=== PATIENT | male | born 1950 | race Caucasian/White ===

== ENCOUNTER 2016-09-02 00:48 | Emergency (ER) | payer OTHER ==
[2016-09-02] MEDS ORDERED: ACETAMINOPHEN 325 MG TABLET PO ONE ×2 (01:26)
[2016-09-02] MEDS ORDERED: NORMAL SALINE 100 ML IV ONE (01:26)
[2016-09-02] MEDS ORDERED: PIPERACILLIN /TAZO 3.375 GM/10 ML VIAL IV ONE (01:26)
[2016-09-02] MEDS ORDERED: NORMAL SALINE 2,000 ML IV ONE (01:26)
--- NOTE | 2016-09-02 01:31 | RADIOLOGY REPORT ---
AP UPRIGHT PORTABLE CHEST RADIOGRAPH CLINICAL INFORMATION: Possible cellulitis. COMPARISON: None. FINDINGS: Lungs are well inflated. Faint bibasilar opacities may reflect atelectasis or consolidation . No pneumothorax. No displaced fractures. Costophrenic angles are clear. Cardiomediastinal silhouett e is normal in size. IMPRESSION: Faint bibasilar opacities may reflect atelectasis or consolidation. Final Electronic Signature: This report was electronically signed by Cortez Mack MD on 7 1:26 AM. judith /
[2016-09-02 01:43] LABS: ALBUMIN 3.8 g/dL (3.5-5.0); ALKALINE PHOSPHATASE 99 U/L (38-126); ALT 42 U/L (21-72); AST 47 U/L (17-59); BILIRUBIN, DIRECT 0.6 mg/dL (0.0-0.4); BILIRUBIN, TOTAL 1.2 mg/dL (0.2-1.3); BLOOD UREA NITROGEN 35 mg/dL (9-20); CALCIUM 9.7 mg/dL (8.4-10.2); CHLORIDE 103 mmol/L (98-107); EST GLOMERULAR FILTRATION RATE 38 mL/min; LIPASE 13 U/L (23-300); POTASSIUM 3.7 mmol/L (3.5-5.1); SODIUM 137 mmol/L (137-145); TOTAL PROTEIN 7.6 g/dL (6.3-8.2)
[2016-09-02 01:47] LABS: HEMATOCRIT 47.2 % (42.0-54.0); HEMOGLOBIN 16.1 g/dL (14.0-18.0); MEAN CORPUS. HGB CONCENTRATION 34.1 g/dL (32.0-36.0); MEAN CORPUSCULAR HEMOGLOBIN 34.6 pg (29.0-35.0); RED BLOOD COUNT 4.66 X 10^6uL (4.20-6.10); RED CELL DISTRIBUTION WIDTH 12.3 % (11.5-14.5); WHITE BLOOD COUNT 19.1 X 10^3uL (3.9-10.7)
[2016-09-02 01:48] LABS: BAND% (Manual) 13 % (0.0-1.0); BASOPHIL % (Manual) 0 % (0.0-2.0); EOSINOPHIL % (Manual) 0 % (0.0-6.0); LYMPHOCYTE % (Manual) 1 % (20.0-40.0); MEAN PLATELET VOLUME 9.2 fL (7.4-10.4); MONOCYTE % (Manual) 6 % (2.0-10.0); NEUTROPHIL % (Manual) 80 % (54.0-75.0); PLATELET COUNT 171 X 10^3uL (130-440); PLATELET ESTIMATE ADEQUATE
[2016-09-02] MEDS ORDERED: VANCOMYCIN HCL 1,000 MG/20 ML VIAL ONE (01:51)
[2016-09-02] MEDS ORDERED: NORMAL SALINE 250 ML IV ONE (01:52)
[2016-09-02 01:54] LABS: C-REACTIVE PROTEIN > 90.0 mg/L (<10.0); GLUCOSE 215 mg/dL (70-100)
[2016-09-02 01:55] LABS: TROPONIN I 0.076 ng/mL (0.00-0.034)
--- NOTE | 2016-09-02 03:02 | ER PHYSICIAN DOCUMENTATION ---
Physician Documentation [facility] Name:Efren Martinez Age:65 yrs Sex:Male :1950 Arrival Date:09/02/2016 Time:00:48 BedTrauma-A Private MD: Marquis Conway Disposition: 09/02/16 02:23 Transfer ordered to [facility]. Diagnosis are Sepsis, Cellulitis of Leg - : Left, Acute, Dehydration, Chronic Renal Failure/Insufficiency, Diabetes with Hyperglycemia. - Reason for transfer: Higher level of care. - Accepting physician is [facility] Hospitalist Meli Rey MD. - Condition is Serious. - Problem is new. - Symptoms have improved. COBRA Form completed? Transfer - Mode of Transportation Ambulance HPI: 09/02 01:19 This 65 yrs old Male presents to ER with complaints of Possible Cellulitis, cd Dehydration and Sepsis. 01:19 The patient presents with cellulitis of the lateral aspect of left calf, medial aspect cd of left calf and left xiao, the patient presents with an erythematous area of the left leg, the patient presents with a swollen area of the left leg. Description: The affected area is large, approximately 35 cm(s), and is circumferential. There is a patch on his left knee and in his left groin., erythematous, swollen, tense, warm. Onset: The symptom(s)/episode began/occurred acutely, 2 day(s) ago. Possible cause(s): unknown. Severity of symptoms: At their worst the symptoms were severe, just prior to arrival, in the emergency department the symptoms have improved, moderately. The patient's has noticed an increasing red, warm, swollen left leg over the past two days. He has felt very weak, feverish with occasional chills but no rigors. This evening he was walking along the bed using it as support, when he went to his knees and his upper body was on the bed. Three family members could not get him into the bed. When paramedics arrived he was very diaphoretic, weak, awake, oriented with a BP of 137, HR 116-120/minute and O2 Sat of 94%. He arrived with similar vital signs. He denies chest pain, cough, SOB, Abdominal pain, or extremity pain. He has no hx of DVT, left leg cellulitis in the past or Diabetic Neuropathy. He is not immunocompromised other than NIDDM. He has an Aortic Stent for a AAA.. 01:19 Associated signs and symptoms: Pertinent positives: erythema, fever, swelling. cd 02:36 The patient has experienced a previous episode, after his Aortic Stent...the port site cd got infected and spread rapidly.. Historical: - Allergies: Nickel; - Home Meds: 1. glipizide 10 mg oral tab 1 tab once daily for Type 2 Diabetes Mellitus 2. metoprolol tartrate 50 mg oral tab 2 times per day 3. furosemide 20 mg oral tab once daily 4. Chantix 1 mg oral tab 1 tab 2 times per day 5. doxazosin 2 mg oral tab Qhs 6. atorvastatin 80 mg oral tab at bedtime 7. metformin 1,000 mg oral tab QHS 8. amlodipine 10 mg oral tab QHS 9. Fish Oil oral 10. losartan 100 mg oral tab QHS - Tetanus: < 10 years. - Ebola Screening: : Patient negative for fever greater than or equal to 101.5 degrees Fahrenheit, and additional compatible Ebola Virus Disease symptoms. Patient denies exposure to infectious person. Patient denies travel to an Ebola-affected area in the 21 days before illness onset. No symptoms or risks identified at this time. . - Immunization history: Flu Vaccine < 1 year. - Social history: Smoking status: Patient states former smoker of tobacco. ROS: 01:41 Constitutional: Positive for chills, fever, malaise, poor PO intake, and generalized cd weakness. 01:41 Cardiovascular: Negative for chest pain, orthopnea, palpitations. 01:41 Respiratory: Negative for cough, shortness of breath, sputum production, wheezing. 01:41 Abdomen/GI: Positive for anorexia, Negative for abdominal pain, nausea, vomiting, diarrhea, abdominal distension. 01:41 : Negative for urinary symptoms, pelvic pain, flank pain, burning with urination, foul smelling urine. 01:41 MS/extremity: Positive for erythema, rash, swelling, warmth, of the left leg. 01:41 Skin: Positive for cellulitis, discoloration, erythema, swelling, of the left leg, warmth, Negative for abscesses, ecchymosis. 01:41 Neuro: Negative for altered mental status, headache, loss of consciousness, syncope, acute changes. 01:41 All other systems are negative. Exam: 01:43 Head/Face: Normocephalic, atraumatic. cd Eyes: Pupils equal round and reactive to light, extra-ocular motions intact. Lids and lashes normal. Conjunctiva and sclera are non-icteric and not injected. Cornea within normal limits. Periorbital areas with no swelling, redness, or edema. ENT: Nares patent. No nasal discharge, no septal abnormalities noted. Tympanic membranes are normal and external auditory canals are clear. Oropharynx with no redness, swelling, or masses, exudates, or evidence of obstruction, uvula midline. Mucous membranes very dry Chest/axilla: Normal chest wall appearance and motion. Nontender with no deformity. No lesions are appreciated. Cardiovascular: Regular rate and rhythm with a normal S1 and S2. No gallops, murmurs, or rubs. Normal PMI, no JVD. No pulse deficits. Respiratory: Lungs have equal breath sounds bilaterally, clear to auscultation and percussion. No rales, rhonchi or wheezes noted. No increased work of breathing, no retractions or nasal flaring. Abdomen/GI: Soft, non-tender, with normal bowel sounds. No distension or tympany. No guarding or rebound. No evidence of tenderness throughout. Back: No spinal tenderness. No costovertebral tenderness. Full range of motion. 01:43 Neuro: Awake and alert, GCS 15, oriented to person, place, time, and situation. cd Cranial nerves II-XII grossly intact. Motor strength 5/5 in all extremities. Sensory grossly intact. Cerebellar exam normal. Normal gait. 01:43 Constitutional: The patient appears alert, awake, non-diaphoretic, well developed, well nourished, obese. 01:43 Musculoskeletal/extremity: Extremities: grossly normal except: noted in the left leg: erythema, swelling, warmth from cellulitsi. 01:43 Skin: Appearance: Color: flushed, cellulitis, that is severe, confluent, on the lateral aspect of left calf, left calf, medial aspect of left calf, left upper thigh, left knee and left xiao. Vital Signs: 01:27 BP 155 / 73; Pulse 118; Resp 19; Temp 98(O); Pulse Ox 93% ; Weight 99.79 kg; Height 5 bw2 ft. 11 in. (180.34 cm); Pain 0/10; 01:40 BP 177 / 81 (auto/); Pulse 104; Resp 18; bw2 02:37 BP 177 / 98; Pulse 99; Resp 18; Pulse Ox 96% on 2 lpm NC; Pain 0/10; bw2 01:27 Body Mass Index 30.68 (99.79 kg, 180.34 cm) bw2 [place] Coma Score: 01:43 Eye Response: spontaneous(4). Verbal Response: oriented(5). Motor Response: obeys cd commands(6). Total: 15. MDM: 00:55 Patient medically screened. cd 01:05 Data interpreted: gambling monitor: rate is 109 beats/min, rhythm is normal sinus cd rhythm, regular, with no ectopy, Interpretation: tachycardia, Pulse oximetry: on room air is 92 %. Interpretation: normal. 01:40 Physician consultation: Malcolm Ramirez MD was called at 01:30, was contacted at 01:35, cd regarding admission, to telemetry, consult, patient's condition, need to come to ED to see patient, need to evaluate the patient as soon as possible, and will see patient in ED, shortly. 01:53 Differential diagnosis: cellulitis, of LLE, Sepsis, Dehydration, DVT. cd 01:58 Counseling: I had a detailed discussion with the patient and/or guardian regarding: the cd historical points, exam findings, and any diagnostic results supporting the discharge/admit diagnosis, lab results, radiology results, the need for further work-up and treatment in the hospital, risk of leaving the Emergency Department. 02:00 Data reviewed: vital signs, nurses notes, EMS record, old medical records, lab test cd result(s), EKG, radiologic studies, plain films, and as a result, I will continue to observe the patient, initiate a consult, from a Dr. Malcolm Ramirez, [facility] Call Physician, administer antibiotics vancomycin, and Zosyn, administer IV fluids, NS bolus, NS maintenence. 02:23 Physician consultation: after a discussion of the case, a recommendation for transfer cd for higher level of care is made. 02:34 Other consultation: I consulted Dr. Meli Wiseman, [facility] Hospitalist; Called at 0215 cd AM; Called back at 0220 AM.Gave full report and she accepted the patient to the [facility] ICU. . 02:35 Response to treatment: the patient's symptoms have markedly improved after treatment, cd and as a result, I will transfer the patient to [facility].. 09/02 01:42 Order name: LACTATE; Complete Time: 01:51 EDFL 09/02 01:51 Interpretation: Abnormal: LACTATE 3.3; Elevated. 09/02 01:53 Order name: CBC W/ MANUAL DIFFERENTIAL; Complete Time: 02:00 EDFL 09/02 01:59 Interpretation: WHITE BLOOD COUNT 19.1; NEUTROPHIL % (Manual) 80; BAND% (Manual) 13; cd Elevated WBC with left shift. 09/02 01:55 Order name: BASIC METABOLIC PANEL; Complete Time: 02:00 EDFL 09/02 02:00 Interpretation: Abnormal: CARBON DIOXIDE 20; GLUCOSE 215; BLOOD UREA NITROGEN 35; cd CREATININE 1.9; Metabolic Acidosis, Dehydration, Hypochloremic Hyponatremia, Chronic Renal Insufficiency. 09/02 01:55 Order name: HEPATIC PANEL; Complete Time: 02:00 EDFL 09/02 02:00 Interpretation: Normal. 09/02 01:55 Order name: LIPASE; Complete Time: 02:00 [facility] 09/02 02:00 Interpretation: Normal. 09/02 01:55 Order name: C-REACTIVE PROTEIN; Complete Time: 02:00 [facility] 09/02 02:00 Interpretation: Abnormal: C-REACTIVE PROTEIN > 90.0; Elevated. 09/02 01:55 Order name: TROPONIN I; Complete Time: 02:00 [facility] 09/02 02:00 Interpretation: Abnormal: TROPONIN I 0.076; elevated. 09/03 01:24 Order name: BLOOD CULTURE [facility] 09/03 01:24 Order name: BLOOD CULTURE [facility] 09/02 01:33 Order name: CHEST; [place] [id number]; Complete Time: 01:51 [facility] 09/02 00:56 Order name: I & O; Complete Time: :25 09/02 00:56 Order name: IV large bore X 2; Complete Time: :25 09/02 00:56 Order name: NPO; Complete Time: : 09/02 00:56 Order name: Oxygen; Complete Time: 01:25 09/02 00:56 Order name: Place Patient On Monitor; Complete Time: :25 09/02 00:56 Order name: Pulse Ox Continuous; Complete Time: :25 cd 09/02 00:56 Order name: 12-lead EKG; Complete Time: 01:25 cd 09/02 00:56 Order name: Accucheck; Complete Time: 01:57 cd Dispensed Medications: 01:24 Drug: NS 0.9% 2000 ml; Route: IV; Rate: bolus; Site: right forearm; 2 02:21 Follow up: IV Status: Completed infusion bw2 01:24 Drug: Acetaminophen 975 mg; Route: PO; bw2 03:00 Follow up: Response: No adverse reaction bw2 01:24 Drug: Zosyn 3.375 grams; Route: IVPB; Site: left antecubital; bw2 02:21 Follow up: IV Status: Completed infusion bw2 02:20 Drug: vancomycin 1 grams; Route: IVPB; Infused Over: 2 hrs; Site: left forearm; 2 03:00 Follow up: IV Status: Infusing continued upon transfer bw2 Signatures: Marquis De La Garza MD MD cd vogel, margaux mv Wisely, Beth 2
--- NOTE | 2016-09-02 03:02 | ER NURSING DOCUMENTATION ---
Nurse's Notes [facility] Name:Efren Martinez Age:65 yrs Sex:Male :1950 Arrival Date:09/02/2016 Time:00:48 BedTrauma-A Private MD: Diagnosis:Sepsis;Cellulitis of Leg-: Left, Acute;Dehydration;Chronic Renal Failure/Insufficiency;Diabetes with Hyperglycemia Presentation: 09/02 01:08 Acuity: BERNARDINO 2 bw2 01:25 Presenting complaint: Patient states: pt states he fell onto his bed and was unable to bw2 stand back up due to weakness. pt has a reddened left lower calf. pt denies chest pain or pain otherwise. Transition of care: patient was not received from another setting of care. 01:25 Method Of Arrival: EMS: 410 bw2 Triage Assessment: 01:26 General: Appears in no apparent distress, comfortable, Behavior is appropriate for age, bw2 cooperative. Pain: Denies pain. Respiratory: No deficits noted. Derm: Skin is red, Skin temperature is. Historical: - Allergies: Nickel; - Home Meds: 1. glipizide 10 mg oral tab 1 tab once daily for Type 2 Diabetes Mellitus 2. metoprolol tartrate 50 mg oral tab 2 times per day 3. furosemide 20 mg oral tab once daily 4. Chantix 1 mg oral tab 1 tab 2 times per day 5. doxazosin 2 mg oral tab Qhs 6. atorvastatin 80 mg oral tab at bedtime 7. metformin 1,000 mg oral tab QHS 8. amlodipine 10 mg oral tab QHS 9. Fish Oil oral 10. losartan 100 mg oral tab QHS - Tetanus: < 10 years. - Ebola Screening: : Patient negative for fever greater than or equal to 101.5 degrees Fahrenheit, and additional compatible Ebola Virus Disease symptoms. Patient denies exposure to infectious person. Patient denies travel to an Ebola-affected area in the 21 days before illness onset. No symptoms or risks identified at this time. . - Immunization history: Flu Vaccine < 1 year. - Social history: Smoking status: Patient states former smoker of tobacco. Screenin:30 Infectious Disease Risk None. Abuse screen: Denies threats or abuse. Nutritional bw2 screening: No deficits noted. Assessment: 01:29 See Triage Assessment done by same RN. Derm:. bw2 Vital Signs: 01:27 BP 155 / 73; Pulse 118; Resp 19; Temp 98(O); Pulse Ox 93% ; Weight 99.79 kg; Height 5 bw2 ft. 11 in. (180.34 cm); Pain 0/10; 01:40 BP 177 / 81 (auto/); Pulse 104; Resp 18; bw2 02:37 BP 177 / 98; Pulse 99; Resp 18; Pulse Ox 96% on 2 lpm NC; Pain 0/10; bw2 01:27 Body Mass Index 30.68 (99.79 kg, 180.34 cm) bw2 [place] Coma Score: 01:43 Eye Response: spontaneous(4). Verbal Response: oriented(5). Motor Response: obeys cd commands(6). Total: 15. ED Course: 00:50 Patient arrived in ED. ma1 00:55 Marquis De La Garza MD is Attending Physician. cd 01:07 EKG done. (by ED staff). bw2 01:08 Macy Kahn is Primary Nurse. bw2 01:08 Triage completed. bw2 01:17 Port Xray Completed. julia 01:30 Inserted peripheral IV: 20 gauge in right antecubital area and blood collected. bw2 01:30 Inserted peripheral IV: 20 gauge in left forearm and blood collected. bw2 01:30 Valuables Remains with patient Patient has correct armband on for positive bw2 identification. Placed in gown. Bed in low position. slotter operator helper on. Pulse ox on. NIBP on. Administered Medications: 01:24 Drug: NS 0.9% 2000 ml; Route: IV; Rate: bolus; Site: right forearm; bw2 02:21 Follow up: IV Status: Completed infusion bw2 01:24 Drug: Acetaminophen 975 mg; Route: PO; bw2 03:00 Follow up: Response: No adverse reaction bw2 01:24 Drug: Zosyn 3.375 grams; Route: IVPB; Site: left antecubital; bw2 02:21 Follow up: IV Status: Completed infusion bw2 02:20 Drug: vancomycin 1 grams; Route: IVPB; Infused Over: 2 hrs; Site: left forearm; bw2 03:00 Follow up: IV Status: Infusing continued upon transfer bw2 Intake: 02:23 IV: 2000ml (NS); Total: 2000ml. bw2 Output: 02:55 Urine: 150ml (Voided); Total: 150ml. bw2 Outcome: 02:23 ER care complete, transfer ordered by . denisse 02:26 Transferred: Patient will be transferred to: [facility]. bw2 02:27 Transferred: Facility Acceptance Time: September 02, 2016 at 02:28 Patient's face sheet was bw2 faxed to accepting facility. Face Sheet included patient's name, address, age, gender, contact information and insurance information. Patient [place] be transported by: [facility] [place]. Nurse and Physician Charting and Notes were sent to Accepting Facility. All tests and/or procedures with results, if applicable, were sent to accepting facility. 02:37 Condition: unchanged bw2 02:37 Discharge Assessment: Patient awake, alert and oriented x 3. No cognitive and/or functional deficits noted. Patient verbalized understanding of disposition instructions. 02:38 Instructed on need for transfer bw2 02:55 Report given to Home SAP BI DEVELOPER bw2 03:01 Patient left the ED. bw2 Signatures: Marquis De La Garza MD MD cd Abbott, cristy Eid [facility] Marge Dela Cruz
== END 2016-09-02 03:02 | disposition short-term general hospital (02) ==
LOC: ER 00:48
DX: L03.116 Cellulitis of left lower limb (principal); A41.9 Sepsis, unspecified organism; E86.0 Dehydration; N18.9 Chronic kidney disease, unspecified; E11.65 Type 2 diabetes mellitus with hyperglycemia; R53.1 Weakness; R61 Generalized hyperhidrosis; R50.9 Fever, unspecified; R53.81 Other malaise; E66.9 Obesity, unspecified; R00.0 Tachycardia, unspecified; E87.2 Acidosis; E87.1 Hypo-osmolality and hyponatremia; Z79.899 Other long term (current) drug therapy; Z99.89 Dependence on other enabling machines and devices; Z74.3 Need for continuous supervision
CPT/HCPCS: 71010; 80048; 80076; 83605; 83690; 84484; 85007; 85027; 86140; 87040; 93005; 96361; 96365; 99285; A0425; A0427; J2543; J3370; J7030; J7050